=== PATIENT | male | born 2000 | race Caucasian/White ===

== ENCOUNTER 2023-11-26 06:22 | Day surgery (SDC) | payer OTHER, SELFPAY ==
[2023-11-26] VITALS (11 sets, daily range): BP systolic 106–146; BP diastolic 60–97; BMI 20.9
[2023-11-26] MEDS: NORMOSOL-R 1000 IV (09:20)
[2023-11-26] MEDS: TYLENOL 1000 MG PO (10:14)
== END 2023-11-26 12:52 | disposition home or self-care (01) ==
LOC: SDS 06:22
PROVIDERS: ATTENDING PHYSICIAN Otolaryngology
DX: J34.2 Deviated nasal septum (principal); J34.3 Hypertrophy of nasal turbinates
CPT/HCPCS: 30520; 30802